=== PATIENT | male | born 1970 | race Hispanic/Latino ===

== ENCOUNTER 2017-03-20 17:00 | Emergency (ER) | payer MEDICAID ==
--- NOTE | 2017-03-20 17:37 | C.PDOC ---
History Of Present Illness 46-YEAR-OLD MALE, PRESENTS TO THE EMERGENCY DEPARTMENT WITH COMPLAINTS OF NEW ONSET R HAND PAIN, SWELLING SINCE YEST. NO INJURY. DENIES REPETITIVE MOTIONS. ONSET WHILE HELPING SOMEONE MOVE. PAIN WORSE TOP OF HAND, WORSE W MOVEMENT. SAW PMD FOR SAME S/P OUTPT XRAY @ [facility] [place] TODAY "BUT I WANT TO KNOW WHATS GOING ON". PMD SENT PAIN RX TO PHARMACY, HAS NOT TAKEN PAIN MEDS TODAY. EXAM EXT R HAND: ATRAUM. NO FOCAL BONY TEND. MIN SWELL. AROM WO DIFF. REPRODUC PAIN W FLEX/EXT. NO TENDON DYSFXN NEURO INTACT SKIN NEG Time Seen by Provider: 03/20/17 17:31 Chief Complaint (Nursing): Upper Extremity Problem/Injury History Per: Patient History/Exam Limitations: no limitations Onset/Duration Of Symptoms: Days Current Symptoms Are (Timing): Still Present Severity: Moderate Past Medical History Reviewed: Historical Data, Nursing Documentation, Vital Signs Vital Signs: Last Vital Signs Temp 97.9 F 03/20/17 17:45 Pulse 77 03/20/17 17:45 Resp 15 03/20/17 17:45 BP 155/81 H 03/20/17 17:45 Pulse Ox 99 03/20/17 17:45 - Medical History PMH: HTN Family History: States: No Known Family Hx - Social History Hx Alcohol Use: No Hx Substance Use: No Review Of Systems Except As Marked, All Systems Reviewed And Found Negative. Constitutional: Negative for: Fever Cardiovascular: Negative for: Chest Pain Respiratory: Negative for: Shortness of Breath Gastrointestinal: Negative for: Nausea, Vomiting Musculoskeletal: Positive for: Hand Pain Neurological: Negative for: Weakness, Numbness, Headache Physical Exam - Physical Exam Appears: Non-toxic, No Acute Distress Skin: Warm, Dry, No Rash Head: Atraumatic, Normacephalic Eye(s): bilateral: Normal Inspection, PERRL Nose: Normal Oral Mucosa: Moist Lips: Normal Appearing Neck: Normal ROM Chest: Symmetrical Cardiovascular: Rhythm Regular, No Murmur Respiratory: Normal Breath Sounds, No Accessory Muscle Use Extremity: Other (EXT R HAND: ATRAUM. NO FOCAL BONY TEND. MIN SWELL. AROM WO DIFF. REPRODUC PAIN W FLEX/EXT. NO TENDON DYSFXN) Neurological/Psych: Oriented x3, Normal Speech, Other (no focal def) Disposition Counseled Patient/Family Regarding: Diagnosis, Need For Followup - Disposition Referrals: Elizabeth Sen MD [Staff Provider] - Disposition: HOME/ ROUTINE Disposition Time: 17:49 Condition: GOOD Instructions: Hand Sprain (ED) Forms: [facility] (Portuguese), Work Excuse - Clinical Impression Clinical Impression: Hand strain - Scribe Statement The provider has reviewed the documentation as recorded by the Scribe (Balta Fernandez) All medical record entries made by the Scribe were at my direction and personally dictated by me. I have reviewed the chart and agree that the record accurately reflects my personal performance of the history, physical exam, medical decision making, and the department course for this patient. I have also personally directed, reviewed, and agree with the discharge instructions and disposition. Orthopedic Care Application Of:: Volar Splint
[2017-03-20 17:46] VITALS: BP 155/81; PULSE 77; RESP 15; TEMP 97.9; O2SAT 99
== END 2017-03-20 18:04 | disposition home or self-care (01) ==
LOC: C.ER 17:00
DX: S66.911A Strain of unspecified muscle, fascia and tendon at wrist and hand level, right hand, initial encounter (principal); X58.XXXA Exposure to other specified factors, initial encounter